=== PATIENT | female | born 1940 | race Caucasian/White ===

== ENCOUNTER 2019-01-15 20:36 | Emergency (ER) | payer MEDICARE, OTHER ==
[~2019-01-15 20:36] MED LIST: Sodium Chloride 0.9% 1,000 ML BAG ONE; Sodium Chloride Irrig Solution 250 ML BOT ONE
[2019-01-15 21:22] LABS: #Basophils 0.1 thou/uL (0.0-0.2); #Eosinphils 0.1 thou/uL (0.0-0.7); #Lymphocytes 1.1 thou/uL (1.20-3.40); #Neutrophils 16.5 thou/uL (1.40-6.50); %Basophils 0.6 % (0.0-1.0); %Eosinophils 0.6 % (0.0-10.0); %Monocytes 5.1 % (0.0-10.0); %Neutrophils 87.7 % (42.0-75.0); Hemoglobin 13.8 g/dL (12.0-16.0); Mean Corpuscular HGB CONC 32.4 g/dL (32.0-36.0); Mean Corpuscular Hemoglobin 29.3 pg (27.0-31.0); Mean Corpuscular Volume 90.5 fL (78.0-98.0); Mean Platelet Volume 7.3 fL (7.4-10.4); Platelet Count 186 thou/uL (130-400); RBC Distribution Width 12.9 % (11.5-14.5); White Blood Cell (WBC) Count 18.8 thou/uL (4.8-10.8)
[2019-01-15 21:27] LABS: INR-International Normal Ratio 1.7; PTT 41.1 SEC (22.9-36.1); Prothrombin Time 19.6 SEC (12.0-14.7)
[2019-01-15 21:36] LABS: ALT (SGPT) 9 U/L (8-55); AST (SGOT) 20 U/L (5-34); Albumin 4.3 g/dL (3.4-4.8); Alkaline Phosphatase 115 U/L (40-110); Anion Gap 20 mmol/L (10-20); BUN (Urea Nitrogen) 39 mg/dL (9.8-20.1); Bilirubin, Total 0.6 mg/dL (0.2-1.2); Calc. Creatinine Clearance 0 mL/min (70-130); Calcium 9.7 mg/dL (7.8-10.44); Carbon Dioxide 21 mmol/L (23-31); Chloride 102 mmol/L (98-107); Estimated GFR-MDRD 24; Globulin 3.8 g/dL (2.4-3.5); Glucose 106 mg/dL (83-110); Potassium 3.6 mmol/L (3.5-5.1); Protein, Total 8.1 g/dL (6.0-8.3); Sodium 139 mmol/L (136-145)
--- NOTE | 2019-01-15 21:43 | CT ---
Exam: Head CT without contrast HISTORY: Patient fell from standing position. Facial laceration. COMPARISON: none FINDINGS: Hemorrhage: No intraparenchymal hemorrhage or extra-axial hematoma. Brain parenchyma: Cortical burgos-white matter differentiation is preserved. No mass effect or midline shift. Basilar cisterns are patent.White matter hypodensities due to chronic small vessel ischemic changes. Additionally, there are hypodensities medial limb of the left internal capsule, right tumblers supervisor al capsule likely representing remote lacunar infarcts. Malacic change in the lateral right cerebellar hemisphere is noted. Ventricular system: Ventricles and sulci are patent and symmetric. Calvarium: Intact. Sinuses and mastoid air cells: Small air-fluid level in the right maxillary sinus and partial opacifi cation of the left frontal sinus. Remaining paranasal sinuses and mastoid air cells are adequately aerated Soft tissues: There is a left frontal, left periorbital and left preseptal soft tissue swelling and h ematoma. Soft tissue swelling and hematoma overlies the left maxilla and anterior portion of the left zygomatic arch. Visualized facial bones do not demonstrate a fracture. Visualized orbits are unremarkable IMPRESSION: 1. Extensive left facial and scalp post traumatic soft tissue changes. No evidence of a fracture with regards to the visualized maxillofacial bones 2. No intracranial posttraumatic sequelae.
--- NOTE | 2019-01-15 21:49 | CT ---
Exam: CT cervical spine without contrast HISTORY: Trauma. Pain. COMPARISON: None FINDINGS: No craniocervical dissociation. Appropriate alignment of the lateral masses of C1 and C2. Intact odon toid process Appropriate alignment of the facets. Soft tissue neck structures: No mass, lymphadenopathy or hematoma. No prevertebral soft tissue swelli ng. Heterogeneous thyroid gland. Upper mediastinum and lung apices: Extensive emphysematous changes. Central spinal canal: Varying degrees of central canal stenosis and neural foraminal narrowing on the basis of degenerative change. Limited evaluation due to technique Vertebral bodies: Cervical spine vertebral body height is maintained. No fracture. IMPRESSION: 1. No cervical spine fracture. 2. Emphysematous changes lung apices. 3. Heterogeneous thyroid gland, incompletely evaluated. Nonemergent thyroid ultrasound.
--- NOTE | 2019-01-15 21:51 | RAD ---
Exam:3 views left shoulder HISTORY: Fall. Pain. COMPARISON: None FINDINGS: Internal fixation hardware is noted. No evidence of perihardware lucency. Fracture is not a ppreciated. There is bony mineralization. Evaluation visualized apical ribs are unremarkable. Scapula is unremarkable. IMPRESSION: No fracture.
--- NOTE | 2019-01-15 21:51 | RAD ---
Exam:2 views left humerus HISTORY: Pain. Fall. COMPARISON: None FINDINGS: Uncomplicated internal fixation hardware. Diffuse bone demineralization. No evidence of acute fracture. IMPRESSION: No acute fracture.
[2019-01-15] MEDS ORDERED: Lidocaine 1% w/Epinephrine 1:100K 20 ML VIAL ONE (22:09)
--- NOTE | 2019-01-15 22:14 | RAD ---
Exam:Left forearm 2 views HISTORY: Pain. Trauma. COMPARISON: None FINDINGS: Diffuse bone demineralization. No fracture. No cortical irregularity. No periosteal reactio n. IMPRESSION: No fracture.
--- NOTE | 2019-01-15 22:16 | RAD ---
Exam:Left hand 3 views HISTORY: Trauma. Pain. COMPARISON: None FINDINGS: Diffuse bone demineralization. Minimal displaced fracture involving the proximal face of th e fifth digit. There is associated soft tissue swelling at the base of the fifth digit, as well as along the dorsum of the hand. There is degenerative change of the first carpometacarpal joint space, radiocarpal joint space. Calcification of the triangular fibrocartilage complex. IMPRESSION: Minimally displaced fracture along the proximal phalanx of the fifth digit. Associated so ft tissue swelling.
[2019-01-15] MEDS ORDERED: Triple Antibiotic Oint 1 GM Packet ONE (22:42)
== END 2019-01-15 23:37 | disposition short-term general hospital (02) ==
LOC: MADERS 20:36
DX: S06.0X1A Concussion with loss of consciousness of 30 minutes or less, initial encounter (principal); S62.617A Displaced fracture of proximal phalanx of left little finger, initial encounter for closed fracture; S01.81XA Laceration without foreign body of other part of head, initial encounter; S40.012A Contusion of left shoulder, initial encounter; S60.222A Contusion of left hand, initial encounter; Z86.73 Personal history of transient ischemic attack (TIA), and cerebral infarction without residual deficits; F03.90 Unspecified dementia, unspecified severity, without behavioral disturbance, psychotic disturbance, mood disturbance, and anxiety; I10 Essential (primary) hypertension; Z87.891 Personal history of nicotine dependence; Z79.01 Long term (current) use of anticoagulants; W18.30XA Fall on same level, unspecified, initial encounter
CPT/HCPCS: 12011; 12051; 26600; 36415; 70450; 72125; 80053; 85025; 85610; 85730; 86850; 86900; 86901; 94760; 96360; 96361; J2001; J7050